=== PATIENT | male | born 1945 | race Caucasian/White ===

== ENCOUNTER → 2020-11-02 | Outpatient (CLI) | payer MEDICARE ==
[~2020-11-02] MED LIST: OMNIPAQUE 350 MG/ML, 150 ML BOTTLE ONE
== END | disposition home or self-care (01) ==
LOC: CFH 08:56
PROVIDERS: ATTEND Urology
DX: C67.9 Malignant neoplasm of bladder, unspecified (principal); I71.4 Abdominal aortic aneurysm, without rupture; M51.37 Other intervertebral disc degeneration, lumbosacral region
CPT/HCPCS: 74178; 82565; Q9967